=== PATIENT | female | born 1950 | race Hispanic/Latino ===

== ENCOUNTER 2018-12-30 07:25 | Day surgery (SDC) | payer OTHER ==
--- OUTSIDE RECORDS SUMMARY | 2018-12-30 07:27 | XMS REPORT ---
:1950 Author Organization [facility] Address [address] [place] [address] Dr. Arguelles [address] [place] [id number] Care Team Providers Name Role Phone Unavailable Unavailable Unavailable Problems This patient has no known problems. Allergies, Adverse Reactions, Alerts This patient has no known allergies or adverse reactions. Medications This patient has no known medications.
--- OUTSIDE RECORDS SUMMARY | 2018-12-30 07:27 | XMS REPORT | Summary of Care ---
:1950 Author Organization [address] [address] Care Team Providers Name Role Phone Saul Manuel Maxwell Primary Care Provider Reason for Referral Radiology Services (Routine) Status Reason Specialty Diagnoses / Referred By Referred To Procedures Contact Contact Closed Diagnostic Diagnoses Postmenopausal bleeding Essential (primary) hypertension Monical, Radiology Procedures US TRANSVAGINAL [place] [address] [place] [phone] Radiology Services (Routine) Status Reason Specialty Diagnoses / Referred By Referred To Procedures Contact Contact Closed Diagnostic Diagnoses Postmenopausal bleeding Essential (primary) hypertension Monical, Radiology Procedures US TRANSVAGINAL [place] [address] [place] [phone] Reason for Visit Radiology Services (Routine) Status Reason Specialty Diagnoses / Referred By Referred To Procedures Contact Contact Closed Diagnostic Diagnoses Postmenopausal bleeding Essential (primary) hypertension Monical, Radiology Procedures US TRANSVAGINAL [place] [address] [place] [id number] Encounter Details Date Type Department Care Team Description 12/12/2018 Hospital Encounter [facility] Radiology Arrived [address] [place] [address] [place] [id number] Allergies Not on Filedocumented as of this encounter (statuses as of 12/13/2018) Medications Not on filedocumented as of this encounter (statuses as of 12/13/2018) Active Problems Not on filedocumented as of this encounter (statuses as of 12/13/2018) Social History Tobacco Use Types Packs/Day Years Used Date Never Assessed Sex Assigned at Date Recorded Not on file Job Start Date Occupation Industry Not on file Not on file Not on file Travel History Travel Start Travel End No recent travel history available. documented as of this encounter Last Filed Vital Signs Not on filedocumented in this encounter Plan of Treatment Health Maintenance Due Date Last Done Comments HEPATITIS C (HCV) SCREEN 1950 DTaP,Tdap,and Td Vaccines (1 - Tdap) 1970 MAMMOGRAM 1991 COLONOSCOPY 2001 Zoster Recombinant Vaccine (SHINGRIX) (1 of 2) 2001 Medicare Wellness Visit 2016 Osteoporosis Screening 2016 PNEUMOCOCCAL VACCINES 65+ (1 of 2 - PCV13) 2016 INFLUENZA VACCINE (#1) 2018 documented as of this encounter Procedures Procedure Name Priority Date/Time Associated Diagnosis Comments US TRANSVAGINAL Routine 12/12/2018 2:23 PM Postmenopausal bleeding Results for this CDT Essential (primary) procedure are in hypertension the results section. documented in this encounter Results US TRANSVAGINAL (12/12/2018 2:23 PM CDT) Specimen Narrative Performed At * * * * * * * * ORIGINAL REPORT * * * * * * * * PACS/VR/DOSE PELVIC ULTRASOUND HISTORY: Postmenopausal bleeding TECHNIQUE: Transvaginal sonographic evaluation of the uterus and adnexa is performed. FINDINGS: The uterus is normal in size, shape and echotexture. The uterus measures 3.9 x 2.7 x 4.2 cm.No focal lesions are present within the uterus. The endometrial stripe is normal and measures 3 mm. A small dystrophic endometrial calcification is seen on the right side of the fundus. Small nabothian cysts are seen in the cervix. Both ovaries are normal. The right ovary measure 2.0 x 1.8 x 1.7 cm with volume of 3.3 mL. Left ovary measures 2.2 x 2.1 x 1.2 cm with volume of 3 mL. No free fluid is seen in the cul-de-sac. CONCLUSION: Normal ultrasound of the pelvis. Procedure Note [facility], Radiant Results Inft User - 12/12/2018 2:44 PM CDT * * * * * * * * ORIGINAL REPORT * * * * * * * * PELVIC ULTRASOUND HISTORY: Postmenopausal bleeding TECHNIQUE: Transvaginal sonographic evaluation of the uterus and adnexa is performed. FINDINGS: The uterus is normal in size, shape and echotexture. The uterus measures 3.9 x 2.7 x 4.2 cm. No focal lesions are present within the uterus. The endometrial stripe is normal and measures 3 mm. A small dystrophic endometrial calcification is seen on the right side of the fundus. Small nabothian cysts are seen in the cervix. Both ovaries are normal. The right ovary measure 2.0 x 1.8 x 1.7 cm with volume of 3.3 mL. Left ovary measures 2.2 x 2.1 x 1.2 cm with volume of 3 mL. No free fluid is seen in the cul-de-sac. CONCLUSION: Normal ultrasound of the pelvis. Performing Organization Address City/State/Zipcode Phone Number PACS/VR/DOSE documented in this encounter Visit Diagnoses Diagnosis Postmenopausal bleeding Essential (primary) hypertension Unspecified essential hypertension documented in this encounter Insurance Payer Benefit Plan / Subscriber ID Effective Dates Phone Address Type Group MEDICARE MEDICARE PART xxxxxxxxxxx 2016-Beth [phone] [address] [place] [address] [id number] [place] [phone] documented as of this encounter
[2018-12-30] MEDS ORDERED: Ringers Lactate 1,000 ML IV ONE (07:52)
[2018-12-30] MEDS ORDERED: NA CHLORIDE 0.9% 1,000 ML ONE (09:19)
[2018-12-30 09:39] LABS: Potassium 3.5 mmol/L (3.5-5.1)
[2018-12-30] MEDS ORDERED: FENTANYL CITR 100 MCG/2 ML ONE (09:41)
[2018-12-30] MEDS ORDERED: PROPOFOL 200 MG/20 ML VIAL IV ONE (09:41)
[2018-12-30] MEDS ORDERED: MIDAZOLAM HCL 2 MG/2 ML INJ ONE (09:41)
[2018-12-30] MEDS ORDERED: LIDOCAINE 2% MPF 5 ML VIAL ONE (09:41)
[2018-12-30] MEDS: LIDOCAINE 1% W/EPI 1:100,000 MDV 20 ML VIAL ONE ×2 (10:46→10:59)
[2018-12-30] MEDS ORDERED: GLYCOPYRROLATE 0.2 MG/ML SYR ONE (11:16)
[2018-12-30] MEDS ORDERED: KETOROLAC 30 MG/ML INJ ONE (11:21)
[2018-12-30] MEDS ORDERED: LABETALOL HCL 100 MG/20 ML ONE (12:26)
--- NOTE | 2018-12-30 17:35 | EKG ---
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
--- NOTE | 2018-12-31 02:31 | OP ---
Date of Procedure: 12/30/2018 Surgeon: Shawnee Pollard MD Preoperative Diagnoses: 1.Postmenopausal bleeding. 2.Pelvic pain. 3.Left lower quadrant pain. Postoperative Diagnoses: 1.Postmenopausal bleeding. 2.Pelvic pain. 3.Left lower quadrant pain. Procedures Performed: Diagnostic hysteroscopy, dilation and curettage. Anesthesia: MAC plus paracervical block. Specimens: Endometrial curetting skin. Complications: No complications. Drains: No drains. Condition: Stable. Findings: Empty uterine cavity, thin lining, scant sample. Indications For Procedure: Patient is a 68-year-old with a postmenopausal bleeding and complaints of pain. Transvaginal ultrasound was done. Her endometrial lining was only 3 mm; however, given the f act that she has pelvic pain in conjunction with postmenopausal bleeding. We discussed the options o f sampling and cavity visualization and then observation of the pathology is negative versus observat ion and follow up in 3-6 months on the bleeding and followup sonogram for endometrial evaluation. Patient preferred to get her endometrial sample now, so she consented her for possible hysteroscopy, D and C as she was not very tolerant of pain with her procedure as a pelvic exam. Description Of Procedure: After informed consent was verified, the patient was taken back to OR, hank belinda in supine fashion on the operating table. After MAC was given, she was placed in dorsal lithotom y position. Pelvic exam was performed. Speculum was placed to expose the cervix. Anterior lip was injected with 1% lidocaine mixed with 1:100,000 epinephrine, 10 mL was injected here, then 5 mL each at 4 and 8 o'clock positions of the cervicovaginal junction. Her blood pressure had increased after the injection; however, it moderated out later on. Prep x3 with Betadine was done. Diagnostic SlimLine hysteroscope was used to traverse the cervical c anal under direct vision into the uterine cavity. Cavity was empty. Both tubal ostia visualized, wh ich were unremarkable. The scope was pulled out. Endometrial curettings were performed with a 0 cur ette. Sample sent out for permanent pathology. Instrument was removed. Instrument, needle, and spo nge counts were correct at the case. Patient tolerated the procedure well. Follow up in 1 week. Th e pathology was negative. Return to office in 6 months with observation. BARBARA/EBONIE Voice ID: [id number] Report ID: [id number]
== END 2018-12-30 13:25 | disposition home or self-care (01) ==
LOC: OR 07:25
PROVIDERS: ATTEND Obstetrics & Gynecology
PROC: 0UJD8ZZ Inspection of Uterus and Cervix, Via Natural or Artificial Opening Endoscopic (ICD-10-PCS; 2018-12-30)
PROC: 0UDB7ZX Extraction of Endometrium, Via Natural or Artificial Opening, Diagnostic (ICD-10-PCS; principal; 2018-12-30 08:30)
DX: N95.0 Postmenopausal bleeding (principal); R10.2 Pelvic and perineal pain; R10.32 Left lower quadrant pain; E11.9 Type 2 diabetes mellitus without complications; I10 Essential (primary) hypertension; E78.5 Hyperlipidemia, unspecified; F32.9 Major depressive disorder, single episode, unspecified; Z90.49 Acquired absence of other specified parts of digestive tract; Z85.3 Personal history of malignant neoplasm of breast; Z85.038 Personal history of other malignant neoplasm of large intestine; Z82.49 Family history of ischemic heart disease and other diseases of the circulatory system
CPT/HCPCS: 93005; 80048; 36415; 88305; 58558; J2704; J2250; J3010; J7030

== ENCOUNTER 2022-09-12 01:23 | Emergency (ER) | payer OTHER ==
--- OUTSIDE RECORDS SUMMARY | 2022-09-12 01:26 | XMS REPORT | Continuity of Care Document ---
:1950 Author Organization [facility] Address [address] [facility]. [address] [place] [address] Care Team Providers Name Role Phone Shawnee Pollard MD Attending Clinician Doctor Unassigned, Rand Attending Clinician Unavailable Radiology Attending Clinician Unavailable Payers Payer Name Policy Type Policy Number Effective Date Expiration Date S kieran Cigna Supplement C1 [id number] Common Solution [facility] MEDICARE NOVITAS MB [id number] Common [facility] MEDICARE NOVITAS MB [id number] Common [facility] Cigna Supplement C1 [id number] Common Solution [facility] Cigna Supplement C1 [id number] Common [facility] MEDICARE NOVITAS MB [id number] [facility] Cigna Supplement C1 [id number] Common [facility] MEDICARE NOVITAS MB [id number] Common [facility] MEDICARE NOVITAS MB [id number] Common [facility] Cigna Supplement C1 [id number] Common Solution [facility] MEDICARE NOVITAS MB [id number] Common [facility] Cigna Supplement C1 [id number] Common Solution [facility] Problems Condition Condition Condition Status Onset Resolution Last Treating Co mments Source Name Details Category Date Date Treatment Clinician Date Arthritis Arthritis Problem Active Com mon of right of knee, Spirit knee right [facility] Allergies, Adverse Reactions, Alerts This patient has no known allergies or adverse reactions. Social History Social Habit Start Date Stop Date Quantity Comments Source History of Tobacco Use Co mmon [facility] Sex Assigned At Com mon [facility] Smoking Status Start Date Stop Date Source Never Smoker Common [facility] Medications Ordered Filled Start Stop Current Ordering Indication Dosage Frequency Signature Comments Components Source Medication Medication Date Date Medication? Clinician (SIG) Name Name Vitamin D Vitamin D No Vitamin D Liposomal Liposomal No Liposomal Regular Regular Regular Pravastatin Pravastatin No Pravastati Sodium Sodium n Sodium Levemir Levemir No Levemir Vitamin C Vitamin C No Vitamin C Aripiprazol Aripiprazol No Aripiprazo e e le Lisinopril Lisinopril No Lisinopril Carvedilol Carvedilol No Carvedilol Alendronate Alendronate No Alendronat Sodium Sodium e Sodium Hydrochloro Hydrochloro No Hydrochlor thiazide thiazide othiazide Elderberry Elderberry No Elderberry Vitamin D Vitamin D No Vitamin D Liposomal Liposomal No Liposomal Regular Regular Regular Pravastatin Pravastatin No Pravastati Sodium Sodium n Sodium Levemir Levemir No Levemir Aripiprazol Aripiprazol No Aripiprazo Common e e le [facility] Vitamin C Vitamin C No Vitamin C Common [facility] Alendronate Alendronate No Alendronat Common Sodium Sodium e Sodium [facility] Levemir Levemir No Levemir [facility] Liposomal Liposomal No Liposomal Common Regular Regular Regular [facility] Carvedilol Carvedilol No Carvedilol [facility] Vitamin D Vitamin D No Vitamin D [facility] Pravastatin Pravastatin No Pravastati Common Sodium Sodium n Sodium [facility] Hydrochloro Hydrochloro No Hydrochlor Common thiazide thiazide othiazide Sp jacque [facility] Lisinopril Lisinopril No Lisinopril [facility] Elderberry Elderberry No Elderberry [facility] Carvedilol Carvedilol No Liposomal Liposomal No Regular Regular Zinc Zinc No Elderberry Elderberry No Alendronate Alendronate No Sodium Sodium amLODIPine amLODIPine No Besylate Besylate Vitamin C Vitamin C No Metformin Metformin No HCl HCl HumaLOG HumaLOG No hydroCHLORO hydroCHLORO No thiazide thiazide Pravastatin Pravastatin No Sodium Sodium Lisinopril Lisinopril No Levemir Levemir No Vitamin D Vitamin D No ARIPiprazol ARIPiprazol No e e Elderberry Elderberry No HumaLOG HumaLOG No Vitamin C Vitamin C No Levemir Levemir No Vitamin D Vitamin D No Lisinopril Lisinopril No hydroCHLORO hydroCHLORO No thiazide thiazide ARIPiprazol ARIPiprazol No e e Pravastatin Pravastatin No Sodium Sodium Alendronate Alendronate No Sodium Sodium Liposomal Liposomal No Regular Regular Zinc Zinc No Carvedilol Carvedilol No Metformin Metformin No HCl HCl amLODIPine amLODIPine No Besylate Besylate Elderberry Elderberry No Elderberry HumaLOG HumaLOG No HumaLOG Vitamin C Vitamin C No Vitamin C Levemir Levemir No Levemir Vitamin D Vitamin D No Vitamin D Lisinopril Lisinopril No Lisinopril hydroCHLORO hydroCHLORO No hydroCHLOR thiazide thiazide Othiazide ARIPiprazol ARIPiprazol No ARIPiprazo e e le Pravastatin Pravastatin No Pravastati Sodium Sodium n Sodium Alendronate Alendronate No Alendronat Sodium Sodium e Sodium Liposomal Liposomal No Liposomal Regular Regular Regular Zinc Zinc No Zinc Carvedilol Carvedilol No Carvedilol Metformin Metformin No Metformin HCl HCl HCl amLODIPine amLODIPine No amLODIPine Besylate Besylate Besylate Vitamin C Vitamin C No Vitamin C Aripiprazol Aripiprazol No Aripiprazo e e le Lisinopril Lisinopril No Lisinopril Carvedilol Carvedilol No Carvedilol Alendronate Alendronate No Alendronat Sodium Sodium e Sodium Hydrochloro Hydrochloro No Hydrochlor thiazide thiazide othiazide Elderberry Elderberry No Elderberry Immunizations Ordered Immunization Filled Immunization Date Status Commen ts Source Name Name Hyalgan 20 mg Hyalgan 20 mg 2020-04-26 Completed Common S [facility]irit 10:31:00 [facility] Hyalgan 20 mg Hyalgan 20 mg 2020-04-12 Completed Common S [facility]irit 10:33:00 - [facility] Hyalgan 20 mg Hyalgan 20 mg 2020-04-12 Completed Common S pirit 10:33:00 [facility] Hyalgan 20 mg Hyalgan 20 mg 2020-04-12 Completed Common [facility]irit 10:33:00 [facility] Hyalgan 20 mg Hyalgan 20 mg 2020-04-05 Completed Common [facility]irit 10:36:00 [facility] Hyalgan 20 mg Hyalgan 20 mg 2020-04-05 Completed [facility]irit 10:36:00 [facility] Hyalgan 20 mg Hyalgan 20 mg 2020-04-05 Completed Common [facility] 10:36:00 [facility] Vital Signs Vital Name Observation Time Observation Value Comments Source height 2021-03-14 13:30:00 61 [in_i] [facility] weight 2021-03-14 13:30:00 151 [lb_av] [facility] bmi 2021-03-14 13:30:00 28.53 kg/m2 [facility] blood pressure 2021-03-14 13:30:00 131 mm[Hg] [facility] systolic [facility] blood pressure 2021-03-14 13:30:00 79 mm[Hg] [facility] - diastolic [facility] height 2021-03-07 14:45:00 61 [in_i] Common [facility] weight 2021-03-07 14:45:00 151 [lb_av] Common [facility] temperature 2021-03-07 14:45:00 97.3 [degF] [facility] bmi 2021-03-07 14:45:00 28.53 kg/m2 [facility] blood pressure 2021-03-07 14:45:00 132 mm[Hg] [facility] - systolic [facility] blood pressure 2021-03-07 14:45:00 84 mm[Hg] [facility] - diastolic [facility] height 2021-02-28 13:00:00 61 [in_i] Common [facility] - [facility] weight 2021-02-28 13:00:00 151 [lb_av] Common [facility] - [facility] temperature 2021-02-28 13:00:00 97.7 [degF] Common [facility] - [facility] bmi 2021-02-28 13:00:00 28.53 kg/m2 [facility] - [facility] blood pressure 2021-02-28 13:00:00 124 mm[Hg] [facility] - systolic [facility] blood pressure 2021-02-28 13:00:00 72 mm[Hg] [facility] - diastolic [facility] height 2020-04-26 10:30:00 61 [in_i] Common [facility] - [facility] weight 2020-04-26 10:30:00 172 [lb_av] Common [facility] - [facility] temperature 2020-04-26 10:30:00 97.3 [degF] Common [facility] - [facility] bmi 2020-04-26 10:30:00 32.5 kg/m2 [facility] - [facility] blood pressure 2020-04-26 10:30:00 132 mm[Hg] [facility] - systolic [facility] blood pressure 2020-04-26 10:30:00 82 mm[Hg] [facility] - diastolic [facility] height 2020-04-12 10:00:00 61 [in_i] Common [facility] - [facility] weight 2020-04-12 10:00:00 172 [lb_av] Common [facility] - [facility] temperature 2020-04-12 10:00:00 97.5 [degF] Common [facility] - [facility] bmi 2020-04-12 10:00:00 32.50 kg/m2 [facility] - [facility] blood pressure 2020-04-12 10:00:00 146 mm[Hg] [facility] - systolic [facility] blood pressure 2020-04-12 10:00:00 75 mm[Hg] [facility] - diastolic [facility] height 2020-04-05 10:00:00 61 [in_i] Common S [facility]irit [facility] weight 2020-04-05 10:00:00 172 [lb_av] Common S pirit [facility] bmi 2020-04-05 10:00:00 32.50 kg/m2 Common [facility] - [facility] blood pressure 2020-04-05 10:00:00 132 mm[Hg] [facility] - systolic [facility] blood pressure 2020-04-05 10:00:00 78 mm[Hg] Common [facility] - diastolic [facility] Procedures This patient has no known procedures. Encounters Start End Encounter Admission Attending Care Care Encounter Source Date/Time Date/Time Type Type Clinicians Facility Department ID 2021-05-24 Outpatient STLMLC STLMLC [id number] Common 14:07:47 [id number] [facility] 2021-05-24 Outpatient STLMLC STLMLC [id number] Common 12:06:18 [id number] [facility] 2021-05-24 Outpatient STLMLC STLMLC [id number] Common 12:05:45 [id number] [facility] 2021-03-14 2021-03-14 (IN/ASP) STLMLC STLMLC [id number] C ommon 00:00:00 00:00:00 INJ ASP [facility] 2021-03-07 2021-03-07 (IN/ASP) STLMLC STLMLC [id number] C ommon 00:00:00 00:00:00 INJ ASP [facility] 2021-02-28 2021-02-28 OFFICE STLMLC STLMLC [id number] Co mmon 00:00:00 00:00:00 VISIT [facility] ESTAB PT - [facility] LEVEL 4 [facility] 2020-04-26 2020-04-26 (IN/ASP) STLMLC STLMLC [id number] C ommon 00:00:00 00:00:00 INJ ASP [facility] 2020-04-12 2020-04-12 (IN/ASP) STLMLC STLMLC [id number] C ommon 00:00:00 00:00:00 INJ ASP [facility] 2020-04-05 2020-04-05 (IN/ASP) STLMLC STLMLC [id number] C ommon 00:00:00 00:00:00 INJ ASP [facility] 2020-03-15 2020-03-15 Outpatient STLMLC STLMLC [id number] Common 00:00:00 00:00:00 [facility] 2019-01-08 2019-01-08 [facility] [id number] 09:15:00 23:59:00 Encounter Shawnee Lino [id number] [place] [id number] [place] [id number] 2019-01-08 2019-01-08 Orders Doctor FELIX [id number] 00:00:00 00:00:00 Only Unassigned, SHANNAN [id number] Rand [id number] 2018-12-12 2018-12-12 Hospital Radiology [facility] [id number] 13:27:26 23:59:00 Encounter Zoie [id number] [place] [id number] [place] [id number] Results This patient has no known results.
[2022-09-12 02:05] LABS: Absolute Lymphocytes (CBC) 2.6 K/uL (0.7-4.9); Hematocrit 32.1 % (36.0-45.0); Lymphocytes % 31.2 % (15.3-44.8); MCV 91.2 fL (80-100); MPV 8.2 fL (7.6-11.3); Protime INR 1.05; RBC Red Blood Cell Count 3.52 M/uL (3.86-4.86)
[2022-09-12 02:17] LABS: Albumin 3.2 g/dL (3.4-5.0); Bilirubin Direct 0.1 mg/dL (0-0.2); Bilirubin Indirect, Calculated 0.3 mg/dL (0.2-0.8); Bilirubin Total 0.4 mg/dL (0.2-1.0); Potassium 3.6 mEq/L (3.5-5.1); Protein, Total 7.6 g/dL (6.4-8.2); Troponin High Sensitivity 5.2 pg/mL (<58.9)
--- NOTE | 2022-09-12 05:12 | EDPHYS ---
Physician Documentation [facility] Name: Sharita Ibarra Age: 72 yrs Sex: Female : 1950 Arrival Date: 09/12/2022 Time: 01:23 Bed 14 Private MD: ED Physician Antony Davis HPI: 09/12 01:27 This 72 yrs old Female presents to ER via Unassigned with complaints of sp4 midsternal pressure type chest pain . 01:27 72-year-old female with past medical history diabetes, hypertension, ADHD, sp4 hypercholesterolemia presents with acute onset of midsternal chest pain starting at midnight associated with shortness of breath. Patient has no prior history of coronary artery stents, has history of nky-[id number] diabetes, history of ADHD that is managed with methylphenidate. Patient states she has a history of recent bronchitis associated with cough . 01:28 EMS reported that aspirin was administered prior to arrival full dose 324 mg. Also sp4 patient was given nitroglycerin sublingual which caused transient decrease in blood pressure down to 80 systolic. Patient was given IV fluids to increase her blood pressure. On arrival patient states pain is ongoing and is mild to moderate in intensity. . Historical: - Allergies: 01:31 No Known Allergies; as6 - PMHx: 01:31 Diabetes mellitus; Hypertensive disorder; Hypercholesterolemia; as6 - PSHx: 01:31 Cholecystectomy; as6 - Immunization history:: Client reports receiving the Michael \T\ Michael single-dose vaccine. - Social history:: Patient/guardian denies using alcohol, street drugs, IV drugs, caffeine, over the counter diet medications, tobacco products, , Smoking status: Patient denies any tobacco usage or history of. - Family history:: not pertinent. ROS: 01:28 Constitutional: Negative for fever, chills, and weight loss, Eyes: Negative for injury, sp4 pain, redness, and discharge, ENT: Negative for injury, pain, and discharge, Neck: Negative for injury, pain, and swelling, Cardiovascular: Positive for chest pain and shortness of breath. Negative for palpitations or syncope Respiratory: Negative for cough, wheezing, and pleuritic chest pain, positive for acute dyspnea Abdomen/GI: Negative for abdominal pain, nausea, vomiting, diarrhea, and constipation, Back: Negative for injury and pain, : Negative for injury, bleeding, discharge, and swelling, MS/Extremity: Negative for injury and deformity, Skin: Negative for injury, rash, and discoloration, Neuro: Negative for headache, weakness, numbness, tingling, and seizure, Psych: Negative for depression, anxiety, Allergy/Immunology: Negative for hives, rash, and allergies Endocrine: Negative for neck swelling, polydipsia, polyuria, polyphagia, and weight changes Hematologic/Lymphatic: Negative for swollen nodes, abnormal bleeding, and unusual bruising Exam: :28 Constitutional: This is a well developed, well nourished patient who is awake, alert, sp4 and in no acute distress. Head/Face: Normocephalic, atraumatic. Eyes: Pupils equal round and reactive to light, extra-ocular motions intact. Lids and lashes normal. Conjunctiva and sclera are not injected. Cornea within normal limits. Periorbital areas with no swelling, redness, or edema. ENT: Nares patent. No nasal discharge, no septal abnormalities noted. Tympanic membranes are normal and external auditory canals are clear. Oropharynx with no redness, swelling, or masses, exudates, or evidence of obstruction, uvula midline. Mucous membranes moist. Neck: Trachea midline, no thyromegaly or masses palpated, and no cervical lymphadenopathy. Supple, full range of motion without nuchal rigidity, or vertebral point tenderness. No Meningismus. Chest/axilla: Normal chest wall appearance and motion. Nontender with no deformity. No lesions are appreciated. Cardiovascular: Regular rate and rhythm with a normal S1 and S2. No gallops, murmurs, or rubs. Normal PMI, no JVD. No pulse deficits. Respiratory: Lungs have equal breath sounds bilaterally, clear to auscultation and percussion. No rales, rhonchi or wheezes noted. No increased work of breathing, no retractions or nasal flaring. Abdomen/GI: Soft, non-tender, with normal bowel sounds. No distension or tympany. No guarding or rebound. No evidence of tenderness throughout. Back: No spinal tenderness. No costovertebral tenderness. Skin: Warm, dry with normal turgor. Normal color with no rashes, no lesions, and no evidence of cellulitis. MS/ Extremity: Pulses equal, no cyanosis. Neurovascular intact. Full, normal range of motion. Neuro: Awake and alert, GCS 15, oriented to person, place, time, and situation. Cranial nerves II-XII grossly intact. Motor strength 5/5 in all extremities. Sensory grossly intact. Psych: Awake, alert, with orientation to person, place and time. Behavior, mood, and affect are within normal limits 01:28 ECG was reviewed by the Attending Physician. EKG time 0 128, there is sinus bradycardia sp4 at the rate of 55, no ST elevation or depression, no ectopy, otherwise normal EKG 04:26 Repeat EKG at 0 420 rate is sinus bradycardia at the rate of 54, no ST elevation or sp4 depression, no ectopy, normal axis, normal intervals, normal EKG overall Vital Signs: 01:30 BP 129 / 60; Pulse 54; Resp 19 S; Temp 97.7(O); Pulse Ox 96% on R/A; Weight 75.3 kg as6 (R); Height 5 ft. 1 in. (R); Pain 1/10; 02:51 BP 112 / 59; Pulse 56; Resp 17 S; Pulse Ox 100% on R/A; as6 01:30 Body Mass Index 31.37 (75.30 kg, 154.94 cm) as6 01:30 Pain Scale: Adult as6 MDM: 01:32 Patient medically screened. sp4 04:13 Differential Diagnosis altered mental status, flu. Data reviewed: vital signs, nurses sp4 notes, EMS record, old medical records, lab test result(s), cardiac enzymes, CBC, electrolytes, hepatic panel, EKG, radiologic studies, plain films. ED course: Patient's chest x-ray revealed prominent interstitial markings but is otherwise negative and normal cardiomediastinal silhouette. ED course: Labs at this time are unremarkable, without elevated troponin. 05:09 Consideration of Admission/Observation Escalation of care including sp4 admission/observation considered. ED course: Repeat troponin and EKG are normal. Patient states she is feeling much better. Patient will be advised to see Dr. Nevarez with cardiology on outpatient basis for an office evaluation and stress test/echocardiogram. . 09/12 01:28 Order name: Basic Metabolic Panel; Complete Time: 02:27 sp4 09/12 01:28 Order name: CBC with Diff; Complete Time: 02:11 sp4 09/12 01:28 Order name: LFT's; Complete Time: 02:27 sp4 09/12 01:28 Order name: NT PRO-BNP; Complete Time: 02:27 sp4 09/12 01:28 Order name: PT-INR; Complete Time: 02:11 4 09/12 01:28 Order name: Troponin HS; Complete Time: 02:27 4 09/12 01:58 Order name: COVID-19 SARS RT PCR; Complete Time: 03:58 09/12 01:58 Order name: Influenza Screen (a \T\ B); Complete Time: 04:42 sp4 09/12 03:58 Order name: Troponin High Sensitivity; Complete Time: 05:07 09/12 01:28 Order name: XRAY Chest (1 view) 4 09/12 01:28 Order name: EKG; Complete Time: 01:29 09/12 01:28 Order name: Cardiac monitoring; Complete Time: 01:29 09/12 01:28 Order name: EKG - Nurse/Tech; Complete Time: 01:30 09/12 01:28 Order name: IV Saline Lock; Complete Time: 01:30 09/12 01:28 Order name: Labs collected and sent; Complete Time: 01:43 09/12 01:28 Order name: O2 Per Protocol; Complete Time: 01:30 09/12 01:28 Order name: O2 Sat Monitoring; Complete Time: 01:30 09/12 03:58 Order name: EKG - Nurse/Tech; Complete Time: 04:25 4 EC:28 Rate is 55 beats/min. Rhythm is regular, Sinus bradycardia. QRS [place] is Normal. [place] sp4 interval is normal. QRS interval is normal. QT interval is normal. T waves are Normal. No ST changes noted. Clinical impression: No evidence of ischemia. Interpreted by me. Administered Medications: 05:16 Not Given (Patient Refused): morphine IVP or IV 4 mg IVP once over 4 mins ll3 05:16 Not Given (Patient Refused): Ondansetron IVP 4 mg IVP once; over 2 minutes ll3 Disposition Summary: 09/12/22 05:11 Discharge Ordered Location: Home sp4 Problem: new sp4 Symptoms: have improved sp4 Condition: Stable sp4 Diagnosis - Chest pain, unspecified sp4 - Rule out ACS work-up negative sp4 Followup: sp4 - With: Mino Reardon MD - When: 7 - 10 days - Reason: Recheck today's complaints Discharge Instructions: - Discharge Summary Sheet sp4 - Nonspecific Chest Pain, Adult, [id number] sp4 Signatures: Dispatcher [employer] Chi Shukla RN RN as6 Antony Davis MD MD sp4 Varsha Dean RN ll3
--- NOTE | 2022-09-12 05:12 | ER ---
Nurse's Notes [facility] Name: Sharita Ibarra Age: 72 yrs Sex: Female : 1950 Arrival Date: 09/12/2022 Time: 01:23 Bed 14 Private MD: Diagnosis: Chest pain, unspecified;Rule out ACS work-up negative Presentation: 09/12 01:31 Coronavirus screen: At this time, the client does not indicate any symptoms associated as6 with coronavirus-19. Ebola Screen: No symptoms or risks identified at this time. Initial Sepsis Screen: Does the patient meet any 2 criteria? No. Patient's initial sepsis screen is negative. Does the patient have a suspected source of infection? No. Patient's initial sepsis screen is negative. Risk Assessment: Do you want to hurt yourself or someone else? Patient reports no desire to harm self or others. Onset of symptoms was September 12, 2022. 01:31 Acuity: ESTELLA 3 as6 01:31 Method Of Arrival: EMS: [facility] as6 01:32 Chief complaint: EMS states: called out for chest pain. pt was trying to go to sleep as6 and the pain woke her up. EMS have Zofran 4 mg, nitro SL x1, 4 baby asa. Historical: - Allergies: 01:31 No Known Allergies; as6 - PMHx: 01:31 Diabetes mellitus; Hypertensive disorder; Hypercholesterolemia; as6 - PSHx: 01:31 Cholecystectomy; as6 - Immunization history:: Client reports receiving the Michael \T\ Michael single-dose vaccine. - Social history:: Patient/guardian denies using alcohol, street drugs, IV drugs, caffeine, over the counter diet medications, tobacco products, , Smoking status: Patient denies any tobacco usage or history of. - Family history:: not pertinent. Screenin:16 [facility] ED Fall Risk Assessment (Adult) History of falling in the last 3 months, ll3 including since admission No falls in past 3 months (0 pts) Confusion or Disorientation No (0 pts) Intoxicated or Sedated No (0 pts) Impaired Gait No (0 pts) Mobility Assist Device Used No (0 pt) Altered Elimination No (0 pt) Score/Fall Risk Level 0 - 2 = Low Risk Oriented to surroundings, Maintained a safe environment, Educated pt \T\ family on fall prevention, incl call for assistance when getting out of bed. Abuse screen: Denies threats or abuse. Denies injuries from another. Nutritional screening: No deficits noted. Tuberculosis screening: No symptoms or risk factors identified. Assessment: 01:30 General: Appears in no apparent distress. comfortable, Behavior is calm, cooperative. as6 Pain: Complains of pain in chest Quality of pain is described as dull. Neuro: Level of Consciousness is awake, alert, obeys commands, Oriented to person, place, time, situation. Cardiovascular: Reports chest pain, Denies shortness of breath, Capillary refill < 3 seconds Patient's skin is warm and dry. Respiratory: Respiratory effort is even, unlabored, Respiratory pattern is regular, symmetrical. GI: No deficits noted. No signs and/or symptoms were reported involving the gastrointestinal system. : No deficits noted. No signs and/or symptoms were reported regarding the genitourinary system. EENT: No deficits noted. No signs and/or symptoms were reported regarding the EENT system. Derm: Skin is intact, is healthy with good turgor. 02:52 Reassessment: Patient appears in no apparent distress at this time. Patient and/or as6 family updated on plan of care and expected duration. Pain level reassessed. Patient is alert, oriented x 3, equal unlabored respirations, skin warm/dry/pink. 04:30 Reassessment: Patient appears in no apparent distress at this time. Patient and/or aa9 family updated on plan of care and expected duration. Pain level reassessed. Patient is alert, oriented x 3, equal unlabored respirations, skin warm/dry/pink. Patient denies pain at this time. Vital Signs: 01:30 BP 129 / 60; Pulse 54; Resp 19 S; Temp 97.7(O); Pulse Ox 96% on R/A; Weight 75.3 kg as6 (R); Height 5 ft. 1 in. (R); Pain 05/08; 02:51 BP 112 / 59; Pulse 56; Resp 17 S; Pulse Ox 100% on R/A; as6 01:30 Body Mass Index 31.37 (75.30 kg, 154.94 cm) as6 01:30 Pain Scale: Adult as6 ED Course: : Patient arrived in ED. sb4 01:27 Antony Davis MD is Attending Physician. sp4 01:29 Chi Jesus, RN is Primary Nurse. as6 01:30 Arm band placed on. as6 01:30 Maintain EMS IV. Dressing intact. Good blood return noted. Site clean \T\ dry. Gauge \T\ as 6 site: 18g RAC. 01:31 Triage completed. as6 01:43 XRAY Chest (1 view) In Process Unspecified. EDMS 04:28 Troponin High Sensitivity Sent. aa9 05:10 Mino Reardon MD is Referral Physician. sp4 05:16 Patient has correct armband on for positive identification. Bed in low position. Side ll3 rails up X2. Adult w/ patient. 05:16 No provider procedures requiring assistance completed. IV discontinued, intact, ll3 bleeding controlled, No redness/swelling at site. Pressure dressing applied. Administered Medications: 05:16 Not Given (Patient Refused): morphine IVP or IV 4 mg IVP once over 4 mins ll3 05:16 Not Given (Patient Refused): Ondansetron IVP 4 mg IVP once; over 2 minutes ll3 Medication: 05:16 VIS not applicable for this client. ll3 Outcome: 05:11 Discharge ordered by . sp4 05:16 Discharged to home ambulatory. ll3 05:16 Condition: stable 05:16 Discharge instructions given to patient, Instructed on discharge instructions, follow up and referral plans. Demonstrated understanding of instructions, follow-up care. 05:18 Patient left the ED. ll3 Signatures: Dispatcher [employer] EDRI Chi Jesus, ELA MAHMOOD as6 Varsha Dean RN RN ll3 Tea Goetz, ELA MAHMOOD aaAinsley Arango, PA-C PA-C Antony Fletcher MD MD sp4
[2022-09-12 05:38] VITALS: TEMP 97.7
[2022-09-12 05:40] VITALS: BP 112/59; O2SAT 100
--- NOTE | 2022-09-12 10:26 | RAD REPORT ---
EXAM DESCRIPTION: XR Chest, 1 View CLINICAL HISTORY: The patient is 72 years old and is Female; CHEST PAIN TECHNIQUE: Frontal view of the chest. COMPARISON: No relevant prior studies available. FINDINGS: Lungs: Prominent interstitial markings. Hazy opacification of the left lung base which may be due to overlying soft tissue or airspac e disease. Pleural space: Unremarkable. No pneumothorax. Heart: Unremarkable. Mediastinum: Unremarkable. Bones/joints: Unremarkable. IMPRESSION: 1. Prominent interstitial markings. 2. Hazy opacification of the left lung base which may be due to overlying soft tissue or airspace d isease. Electronically signed by: Jeremy Shaw MD 09/12/2022 1:54 AM CDT Due to temporary technical issues with the PACS/Fluency reporting system, reports are being signed by the in house radiologist without review as a courtesy to ensure prompt reporting. The interpreting r adiologist is fully responsible for the content of the report.
--- NOTE | 2022-09-12 11:45 | EKG ---
Test Date: 2022-09-12 Test Time: 01:28:12 Director External Communications: ROGELIO MEASUREMENT RESULTS: Intervals: Rate: 55 DE: 180 QRSD: 76 QT: 476 QTc: 455 [place]: P: 67 DE: 180 QRS: 13 T: 12 INTERPRETIVE STATEMENTS: Sinus bradycardia Otherwise normal ECG Compared to ECG 12/30/2018 09:02:21 No significant changes Electronically Signed On 09-12-22 11:44:27 CDT by Mino Reardon
--- NOTE | 2022-09-13 11:24 | EKG ---
Test Date: 2022-09-12 Test Time: 04:20:31 Wedding Coordinator: MARIE MEASUREMENT RESULTS: Intervals: Rate: 54 WI: 174 QRSD: 80 QT: 468 QTc: 443 [place]: P: 72 WI: 174 QRS: 45 T: 37 INTERPRETIVE STATEMENTS: Sinus bradycardia Otherwise normal ECG Compared to ECG 09/12/2022 01:28:12 No significant changes Electronically Signed On 09-13-22 11:20:29 CDT by Mino Reardon
== END 2022-09-12 05:18 | disposition home or self-care (01) ==
LOC: ER 01:23
DX: R07.89 Other chest pain (principal); I10 Essential (primary) hypertension; E11.9 Type 2 diabetes mellitus without complications; Z20.822 Contact with and (suspected) exposure to COVID-19
CPT/HCPCS: 93005; 85025; 80048; 36415; 85610; 80076; 84484 ×2; 83880; 87804 ×2; 71045; U0003